=== PATIENT | male | born 1965 | race Caucasian/White ===

== ENCOUNTER 2017-11-12 23:05 | Emergency (ER) | payer SELFPAY ==
[~2017-11-12] VITALS: Ht 182.9 cm; Wt 89.9 kg
[2017-11-12 23:06] VITALS: BP 167/130
[2017-11-12] MEDS ORDERED: LIDOCAINE-MPF 2% ,5ML ONE ×2 (23:26→23:55)
[2017-11-12] MEDS ORDERED: DIPH,PERTUSS(ACELL),TET VAC/PF 0.5 ML IM-VACC ONE ×2 (23:27→23:30)
[2017-11-12] MEDS ORDERED: LIDOCAINE-MPF 2% ,5ML SQ ONE (23:30)
[2017-11-13] MEDS ORDERED: BACITRACIN ZINC OINT 500U/GM, 0.9 GM ONE (01:19)
== END 2017-11-13 01:46 | disposition home or self-care (01) ==
LOC: ED 23:59
DX: S51.011A Laceration without foreign body of right elbow, initial encounter (principal); F17.200 Nicotine dependence, unspecified, uncomplicated; W01.0XXA Fall on same level from slipping, tripping and stumbling without subsequent striking against object, initial encounter; Y93.89 Activity, other specified; Y92.009 Unspecified place in unspecified non-institutional (private) residence as the place of occurrence of the external cause; Y99.8 Other external cause status
CPT/HCPCS: 12032; 90471; 90715

== ENCOUNTER 2019-04-18 20:23 | Emergency (ER) | payer OTHER ==
[~2019-04-18] VITALS: Ht 182.9 cm; Wt 103.1 kg
[2019-04-18 20:37] VITALS: BP 177/118
[2019-04-18] MEDS ORDERED: KETOROLAC 30 MG/1 ML IM ONE (21:00)
[2019-04-18] MEDS ORDERED: ACETAMINOPHEN 500 MG TABLET PO ONE (21:00)
[2019-04-18] MEDS ORDERED: ACETAMINOPHEN 500 MG TABLET ONE (21:01)
[2019-04-18] MEDS ORDERED: KETOROLAC 30 MG/1 ML ONE (21:01)
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
== END 2019-04-18 21:28 | disposition home or self-care (01) ==
LOC: ED 21:22
DX: S59.902A Unspecified injury of left elbow, initial encounter (principal); V49.88XA Car occupant (driver) (passenger) injured in other specified transport accidents, initial encounter; Y93.89 Activity, other specified; Y92.413 State road as the place of occurrence of the external cause; Y99.8 Other external cause status
CPT/HCPCS: 96372; 99283; J1885

== ENCOUNTER 2019-09-04 13:18 | Emergency (ER) | payer SELFPAY ==
[~2019-09-04] VITALS: Ht 182.9 cm; Wt 98.7 kg
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
--- NOTE | 2019-09-04 14:22 | NUR ---
PROVIDER IN ROOM.
[2019-09-04 14:42] VITALS: BP 142/115
--- NOTE | 2019-09-04 15:17 | NUR ---
Patient given discharge instructions and they have confirmed that they understand the instructions. Patient ambulatory with steady gait.
== END 2019-09-04 15:17 | disposition home or self-care (01) ==
LOC: ED 15:11
DX: A08.4 Viral intestinal infection, unspecified (principal); I10 Essential (primary) hypertension; Z87.891 Personal history of nicotine dependence
CPT/HCPCS: 99283

== ENCOUNTER 2020-12-15 16:20 | Emergency (ER) | payer SELFPAY ==
[~2020-12-15] VITALS: Ht 182.9 cm; Wt 110.6 kg
[2020-12-15 16:32] VITALS: BP 149/122
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
== END 2020-12-15 18:00 | disposition home or self-care (01) ==
LOC: ED 17:15
DX: S40.212A Abrasion of left shoulder, initial encounter (principal); I10 Essential (primary) hypertension; V49.49XA Driver injured in collision with other motor vehicles in traffic accident, initial encounter; Y93.89 Activity, other specified; Y92.89 Other specified places as the place of occurrence of the external cause; Y99.8 Other external cause status
CPT/HCPCS: 99283